=== PATIENT | female | born 1990 | race Caucasian/White ===

== ENCOUNTER 2020-07-09 20:34 | Emergency (ER) | payer SELFPAY ==
[~2020-07-09] VITALS: Ht 167.6 cm; Wt 71.3 kg
--- NOTE | 2020-07-09 20:40 | NUR ---
PT IN RESTROOM WHEN CALLED FOR TRIAGE.
[2020-07-09 21:27] LABS: BASOPHILS # (AUTO) 0.04 x10^3/uL (0-0.1); BASOPHILS % (AUTO) 0 % (0-1); EOSINOPHILS # (AUTO) 0.08 x10^3/uL (0-0.4); EOSINOPHILS % (AUTO) 1 % (1-7); LYMPHOCYTES # (AUTO) 2.45 x10^3/uL (1-3.4); LYMPHOCYTES % (AUTO) 16 % (22-44); MD NO; MEAN CORPUSCULAR HEMOGLOBIN 30.5 pg (27.0-34.8); MEAN CORPUSCULAR VOLUME 92.2 fL (80-100); MEAN PLATELET VOLUME 7.3 fL (7.4-10.4); MONOCYTES # (AUTO) 0.57 x10^3/uL (0.2-0.8); MONOCYTES % (AUTO) 4 % (2-9); NEUTROPHILS # (AUTO) 12.27 x10^3/uL (1.8-6.8); NEUTROPHILS % (AUTO) 80 % (42-75); PLATELET COUNT 324 x10^3/uL (130-400); RED BLOOD COUNT 4.63 x10^6/uL (3.82-5.3); RED CELL DISTRIBUTION WIDTH 12.3 % (9.6-15.2)
[2020-07-09] MEDS ORDERED: KETOROLAC 30 MG/1 ML IM ONE (21:30)
[2020-07-09] MEDS ORDERED: ONDANSETRON ODT 4 MG PO ONE (21:30)
[2020-07-09] MEDS ORDERED: KETOROLAC 30 MG/1 ML ONE (21:31)
[2020-07-09] MEDS ORDERED: ONDANSETRON ODT 4 MG ONE ×2 (21:32→22:05)
[2020-07-09 21:35] LABS: ANION GAP 4 mmol/L (5-15); CALCIUM 8.7 mg/dL (8.5-10.1); CHLORIDE 110 mmol/L (98-107); CREATININE 0.83 mg/dL (0.55-1.02)
--- NOTE | 2020-07-09 21:43 | NUR ---
PT MEDICATED PER JAN, UNABLE TO LEAVE URINE SAMPLE AT THIS TIME. WATER PROVIDED.
--- NOTE | 2020-07-09 22:06 | NUR ---
PT C/O INCREASED NAUSEA AFTER WALKING FROM BATHROOM. REPORTED TO PROVIDER.
[2020-07-09 22:15] LABS: HCG UR SG 1.034 (1.003-1.030); MICROSCOPIC AUTO
[2020-07-09 22:35] VITALS: BP 104/61
== END 2020-07-09 22:52 | disposition home or self-care (01) ==
LOC: ED 22:05
DX: R10.32 Left lower quadrant pain (principal); R11.0 Nausea
CPT/HCPCS: 36415; 80048; 81001; 81025; 85025; 87086; 96372; 99283; J1885; Q0162